=== PATIENT | male | born 1990 | race Caucasian/White ===

== ENCOUNTER 2019-08-26 19:21 | Observation (INO) | payer MEDICAID ==
[~2019-08-26] VITALS: Ht 182.9 cm; Wt 127.3 kg
--- NOTE | 2019-08-26 20:48 | NUR ---
PATIENT IN WITH C/O URINARY RETENTION THAT STARTED THIS MORNING, IS VOIDING SMALL AMOUNTS, FEELS LIKE HE ISN'T ABLE TO EMPTY HIS BLADDER. HIS AUNT IS AT BEDSIDE.
[2019-08-26 20:49] LABS: APPEARANCE HAZY (CLEAR); BILIRUBIN NEGATIVE (NEGATIVE); COLOR YELLOW (YELLOW); GLUCOSE NEGATIVE (NEGATIVE); KETONE NEGATIVE (NEGATIVE); NITRITE NEGATIVE (NEGATIVE); PROTEIN 3+ mg/dL (NEGATIVE); SPECIFIC GRAVITY 1.015 (1.005-1.020); UROBILINOGEN NORMAL (NORMAL)
--- NOTE | 2019-08-26 20:49 | NUR ---
IN/OUT CATH DONE USING STERILE TECHNIQUE PER MALE RN, 50 CC OF URINE OBTAINED POST VOID.
[2019-08-26 20:50] LABS: WHITE CELLS - URINE 0-5 /hpf (NEGATIVE)
[2019-08-26 20:51] LABS: BACTERIA MODERATE /hpf (NEGATIVE); RED CELLS - URINE >50 /hpf (0-5)
[2019-08-26 22:00] VITALS: BP 164/86
[2019-08-26 22:49] LABS: UDS - AMPHET NEGATIVE QUAL (NEGATIVE); UDS - BARB NEGATIVE QUAL (NEGATIVE); UDS - BENZO NEGATIVE QUAL (NEGATIVE); UDS - COCAINE NEGATIVE QUAL (NEGATIVE); UDS - OPIATE NEGATIVE QUAL (NEGATIVE); UDS - PCP NEGATIVE QUAL (NEGATIVE); UDS - THC NEGATIVE QUAL (NEGATIVE)
--- NOTE | 2019-08-26 23:52 | NUR ---
ROCEPHIN INFUSION COMPLETED AT [id number]
--- NOTE | 2019-08-27 00:05 | NUR ---
PT ARRIVED TO FLOOR VIA WHEELCHAIR. AMBULATED TO BED WITHOUT DIFFICULTY. WITHOUT DISTRESS. AOX4. IV RIGHT AC SL. FLUSHES EASILY. FAMILY AT BEDSIDE. PT DENIES PAIN AT THIS TIME. PT STATES HE HAS HAD A HARD TIME VOIDING AND HAVING SOME PAIN IN SUPRAPUBIC AREA THAT STARTED THIS AM. INFORMED PT HE IS NPO AFTER MN FOR POSSIBLE PROCEDURE THIS AM WITH DR ELIZABETH. VERBALIZED UNDERSTANDING. DENIES NEEDS AT THIS TIME. KRISTIAN COX APN AT BEDSIDE. CL IN REACH,WILL CTM
[2019-08-27 00:07] LABS: CALC OSMOLALITY 279 mosm/kg (275-300); CALCIUM 9.3 mg/dL (8.5-10.1); CARBON DIOXIDE 23.3 mmol/L (21.0-32.0); CHLORIDE - SERUM 105 mmol/L (98-107); CREATININE - SERUM 1.1 mg/dL (0.6-1.3); GLUCOSE 125 mg/dL (74-106); POTASSIUM - SERUM 3.8 mmol/L (3.5-5.1); SODIUM 139 mmol/L (136-145); UREA NITROGEN 16 mg/dL (7-18); eGFR NON AFRICAN AMERICAN 85 mL/min (90-120)
[2019-08-27 00:12] LABS: ALBUMIN 3.8 g/dL (3.4-5.0); ALKALINE PHOSPHATASE 73 U/L (46-116); ALT (SGPT) 24 U/L (10-68); BILIRUBIN - TOTAL 1.84 mg/dL (0.2-1.3)
[2019-08-27 00:23] LABS: BASOPHILS 0.1 % (0-2); EOSINOPHILS 0.1 % (0-7); HEMATOCRIT 43.9 % (42.0-54.0); HEMOGLOBIN 15.1 g/dL (13.5-17.5); IMMATURE GRANULOCYTES 0.2 % (0-5); LYMPHOCYTES 9.2 % (15-50); MCH 30.2 pg (26.0-34.0); MCHC 34.4 g/dL (31.0-37.0); MCV 87.8 fL (80.0-100.0); MEAN PLATELET VOLUME 10.1 fL (7.4-10.4); MONOCYTES 4.3 % (2-11); NEUTROPHILS 86.1 % (40-80); PLATELET COUNT 318 10x3/uL (130-400); RDW 12.2 % (11.5-14.5); WBC 14.3 10x3/uL (4.8-10.8)
[2019-08-27 00:30] VITALS: BP 164/75
--- NOTE | 2019-08-27 00:30 | NUR ---
GAVE PT URINAL FOR STRICT I&O. EDUCATED ON IMPORTANCE OF KNOWING HOW MUCH HE VOIDS. VERBALIZED UNDERSTANDING
[2019-08-27 02:00] VITALS: Ht 182.9 cm; Wt 127.3 kg
[2019-08-27 05:00] VITALS: BP 154/67
[2019-08-27 07:11] LABS: BASOPHILS 0.2 % (0-2); EOSINOPHILS 0.4 % (0-7); HEMATOCRIT 43.7 % (42.0-54.0); HEMOGLOBIN 14.8 g/dL (13.5-17.5); IMMATURE GRANULOCYTES 0.3 % (0-5); LYMPHOCYTES 14.8 % (15-50); MCH 30.1 pg (26.0-34.0); MCHC 33.9 g/dL (31.0-37.0); MCV 88.8 fL (80.0-100.0); MEAN PLATELET VOLUME 10.4 fL (7.4-10.4); MONOCYTES 6.7 % (2-11); NEUTROPHILS 77.6 % (40-80); PLATELET COUNT 296 10x3/uL (130-400); RBC 4.92 10x6/uL (4.20-6.10); RDW 12.3 % (11.5-14.5); WBC 11.9 10x3/uL (4.8-10.8)
[2019-08-27 07:26] LABS: CALC OSMOLALITY 280 mosm/kg (275-300); CALCIUM 9.1 mg/dL (8.5-10.1); CARBON DIOXIDE 24.5 mmol/L (21.0-32.0); CHLORIDE - SERUM 105 mmol/L (98-107); CREATININE - SERUM 1.1 mg/dL (0.6-1.3); GLUCOSE 113 mg/dL (74-106); MAGNESIUM - SERUM 1.9 mg/dL (1.8-2.4); PHOSPHOROUS 3.4 mg/dL (2.5-4.9); POTASSIUM - SERUM 3.7 mmol/L (3.5-5.1); SODIUM 139 mmol/L (136-145); UREA NITROGEN 18 mg/dL (7-18); eGFR NON AFRICAN AMERICAN 85 mL/min (90-120)
[2019-08-27 07:30] LABS: APTT 28.3 SECONDS (22.8-39.4); INR 1.11 (0.85-1.17); PROTIME 13.8 SECONDS (11.6-15.0)
[2019-08-27 08:11] VITALS: BP 137/77
[2019-08-27 12:15] VITALS: BP 132/77
[2019-08-27 14:29] VITALS: BP 133/70
--- NOTE | 2019-08-27 14:36 | NUR ---
PATIENT BACK TO ROOM AT THIS TIME. IV INTACT. VS STABLE. NO COMPLAINTS OR PAIN OR SIGNS OF DISTRESS. FAMILY AT BEDSIDE. CALL LIGHT WITHIN REACH.
--- NOTE | 2019-08-27 15:00 | NUR ---
PATIENT UP TO BR. VOIDING WITH NO PROBLEMS AT THIS TIME. VOIDED 300. STATED HE SPILLED SOME ON THE FLOOR. IV INTACT. VS STABLE. CALL LIGHT WITHIN REACH.
[2019-08-27] MEDS ORDERED: CIPRO500 MG PO (15:02)
--- NOTE | 2019-08-27 16:30 | NUR ---
PATIENT SITTING UP IN BED. VS MACHINE OFF. IV INTACT. STATED HE HAS NO COMPLAINTS OF PAIN. VOIDING WNL. DRINKING WATER WITH NO N/V. WANTS TO EAT.
--- NOTE | 2019-08-27 18:00 | NUR ---
PATIENT ATE REGULAR DIET WITH NO N/V. IV REMOVED AT THIS TIME WITH CATH TIP INTACT. NO PAIN AND VS STABLE. VOIDING WITH NO PROBLEMS. DC INSTRUCTIONS GIVEN TO PATIENT AND AUNT. NO QUESTIONS AT THIS TIME. VERBALIZED UNDERSTANDING. PRESCRIPTION GIVEN TO AUNT. PATIENT AMBULATED DOWN TO PRIVATE VEHICLE WITH PERSONAL BELONGINGS ASSISTED BY [employer].
--- NOTE | 2019-08-28 07:32 | OP ---
PATIENT NAME: MOLINA MENESES III MEDICAL RECORD: [id number] :90 LOCATION:[id number] ADMISSION DATE:08/26/19 SURGEON: ALHAJI ELIZABETH MD DATE OF OPERATION: 08/27/2019 SURGEON: Alhaji Elizabeth MD ANESTHESIA: General anesthesia by Denny Eckert CRNA. DIAGNOSES: Retained foreign body in the bladder, chronic cystitis. PROCEDURE: Cystoscopy and bladder foreign body removal. FINDINGS: Nonobstructive prostate. Single ureteral orifices bilaterally. Inflamed bladder wall without any bladder tumor. There is about 1 foot long by 1/4 inch diameter yellow colored tubing which we removed. SPECIMEN: Bladder foreign body. ESTIMATED BLOOD LOSS: None. CLINICAL HISTORY: This is a 28-year-old male, who came through the Emergency Room with difficulty voiding. He has an elevated white blood cell count, although he has no fever. Urine is suspicious for UTI. He has been started on IV Rocephin and urine has been cultured. CT scan shows a foreign body in the bladder, which resemble a length of tubing. He comes now to the operating room to have it removed. The patient denies knowing about the presence of the foreign body and he denies knowing how he got in there. We did a drug screen on him and he is negative for illegal drugs, alcohol and tobacco. DESCRIPTION OF PROCEDURE: Since the patient was already on IV Rocephin on the floor, we did not give him any further antibiotics. He was given induction of general anesthesia in supine position. He was then placed into stirrups for lithotomy position. He was prepped and draped. A 21-Moroccan cystoscope was used for visualization with a 30-degree lens. The prostate is not obstructive. Going into the bladder, we could see the loop of tubing within the bladder. I used a rigid grasper along the one end of the tube and managed to pull the entire tubing length out. This was sent to pathology as a gross specimen. The scope was then reintroduced and I performed cystoscopy. There was no other foreign body in the bladder. There are no bladder tumors. The bladder was then emptied through the cystoscope sheath and the patient was awakened and brought to the recovery room. TRANSINT:[id number] Voice Confirmation ID: [id number] DOCUMENT ID: [id number] ALHAJI ELIZABETH MD at 0732 CC: [id number] DICTATION DATE: 08/27/19 1349 DESIGNATED BROKER: 08/27/19 1630 DIS IN 08/27/19 [facility] [address] [place] [address]
== END 2019-08-27 18:00 | disposition home or self-care (01) ==
LOC: D.ER 19:21 → OBSVTIME 22:56 → D.MS 22:56
PROVIDERS: Family Medicine; ADMIT Internal Medicine Nephrology; ATTEND Internal Medicine Nephrology
DX: T19.1XXA Foreign body in bladder, initial encounter (principal); N39.0 Urinary tract infection, site not specified; R33.9 Retention of urine, unspecified